=== PATIENT | male | born 1985 | race Caucasian/White ===

== ENCOUNTER 2019-08-15 18:17 | Emergency (ER) | payer SELFPAY ==
[~2019-08-15] VITALS: Ht 180.3 cm; Wt 106.6 kg
[2019-08-15 18:24] VITALS: Ht 180.3 cm; Wt 106.6 kg
[2019-08-15 21:24] LABS: microscopic required? NO
[2019-08-15 21:34] LABS: urine erythrocyte NEGATIVE (NEGATIVE)
[2019-08-15 22:30] VITALS: BP 132/41
== END 2019-08-15 22:30 | disposition home or self-care (01) ==
LOC: ED 18:17
PROVIDERS: Emergency Medicine
DX: M54.5 Low back pain (principal)
CPT/HCPCS: J1885; J2270